=== PATIENT | male | born 1975 | race Two or more races ===

== ENCOUNTER 2018-01-26 17:33 | Emergency (ER) | payer OTHER ==
[~2018-01-26] VITALS: Ht 172.7 cm; Wt 80.7 kg
[2018-01-26 17:55] VITALS: BP 124/77
== END 2018-01-26 19:00 | disposition home or self-care (01) ==
LOC: ER 17:39
DX: J06.9 Acute upper respiratory infection, unspecified (principal); H10.32 Unspecified acute conjunctivitis, left eye
CPT/HCPCS: 99283; A4606; Z7610